=== PATIENT | male | born 1955 | race Caucasian/White ===

== ENCOUNTER → 2017-03-25 | Outpatient (CLI) | payer OTHER ==
[~2017-03-25] MED LIST: REGADENOSON 0.4 MG/5 ML SYRINGE ONE
== END ==
LOC: CVU 08:56 → EDSTATUS 10:00
PROVIDERS: ATTEND Internal Medicine Cardiovascular Disease
DX: Z01.818 Encounter for other preprocedural examination (principal); I08.3 Combined rheumatic disorders of mitral, aortic and tricuspid valves; I48.91 Unspecified atrial fibrillation; I10 Essential (primary) hypertension; E78.5 Hyperlipidemia, unspecified; E11.9 Type 2 diabetes mellitus without complications
CPT/HCPCS: 78452; 93017; 93306; A9502; J2785

== ENCOUNTER 2017-04-02 08:39 | Day surgery (SDC) | payer OTHER ==
[2017-03-31 11:18] LABS: BASOPHILS # (AUTO) 0.05 x10^3/uL (0-0.1); BASOPHILS % (AUTO) 1 % (0-1); EOSINOPHILS # (AUTO) 0.32 x10^3/uL (0-0.4); EOSINOPHILS % (AUTO) 5 % (1-7); LYMPHOCYTES # (AUTO) 1.76 x10^3/uL (1-3.4); LYMPHOCYTES % (AUTO) 25 % (22-44); MD NO; MEAN CORPUSCULAR HEMOGLOBIN 32.5 pg (27.5-34.5); MEAN CORPUSCULAR HGB CONC 32.9 g/dL (33.2-36.2); MEAN CORPUSCULAR VOLUME 98.8 fL (81-97); MEAN PLATELET VOLUME 9.9 fL (7.4-10.4); MONOCYTES % (AUTO) 9 % (2-9); NEUTROPHILS # (AUTO) 4.23 x10^3/uL (1.8-6.8); NEUTROPHILS % (AUTO) 61 % (42-75); PLATELET COUNT 166 x10^3/uL (130-400); RED BLOOD COUNT 4.59 x10^6/uL (4.38-5.82); RED CELL DISTRIBUTION WIDTH 17.5 % (9.4-14.8)
[2017-03-31 11:26] LABS: INTERNATIONAL NORMALIZED RATIO 1.02 (0.93-1.1); PROTHROMBIN TIME 10.6 Seconds (9.6-11.5)
[2017-03-31 11:34] LABS: CALCIUM 9.6 mg/dL (8.5-10.1); CHLORIDE 109 mmol/L (98-107)
[2017-03-31 11:37] LABS: ANION GAP 8 mmol/L (5-15); CREATININE 1.17 mg/dL (0.7-1.3)
[~2017-04-02] VITALS: Ht 185.4 cm; Wt 189.6 kg
[~2017-04-02 08:39] MED LIST changes: +ALLO300T PO; +ATEN25TA PO; +ATOR10TA9 PO; +METF500T4 PO; -REGADENOSON 0.4 MG/5 ML SYRINGE ONE; +VALS1TAB28 PO; +VERA300C2 PO
[2017-04-02] MEDS ORDERED: NITROGLYCERIN 5 MG/ML, 10ML ONE (10:22)
[2017-04-02] MEDS ORDERED: LIDOCAINE 2%, 20ML ONE (10:22)
[2017-04-02] MEDS ORDERED: FENTANYL PF 100 MCG/2ML ONE (10:22)
[2017-04-02] MEDS ORDERED: VERAPAMIL 2.5 MG/ML, 2ML ONE (10:22)
[2017-04-02] MEDS ORDERED: BIVALIRUDIN 250 MG ONE (10:22)
[2017-04-02] MEDS ORDERED: HEPARIN 1,000 UNITS/ML, 10ML ONE (10:22)
[2017-04-02] MEDS ORDERED: MIDAZOLAM 1 MG/ML, 2ML ONE (10:23)
== END 2017-04-02 14:00 | disposition home or self-care (01) ==
LOC: CACL 08:39
PROVIDERS: ATTEND Internal Medicine Cardiovascular Disease
DX: I25.10 Atherosclerotic heart disease of native coronary artery without angina pectoris (principal); I35.0 Nonrheumatic aortic (valve) stenosis; I48.2 Chronic atrial fibrillation; E11.9 Type 2 diabetes mellitus without complications; I10 Essential (primary) hypertension; E78.2 Mixed hyperlipidemia; Z98.84 Bariatric surgery status; Z95.4 Presence of other heart-valve replacement
CPT/HCPCS: 36415; 80048; 85025; 85610; 93454; 99156; C1894; J1644; J2250; J3010; J3490; Q9967; 99157; J0583

== ENCOUNTER 2017-05-07 04:55 | Inpatient (IN) | payer OTHER ==
[2017-05-06 14:22] LABS: MICROSCOPIC NOT IND
[2017-05-06 14:25] LABS: BASOPHILS # (AUTO) 0.02 x10^3/uL (0-0.1); BASOPHILS % (AUTO) 0 % (0-1); EOSINOPHILS # (AUTO) 0.21 x10^3/uL (0-0.4); EOSINOPHILS % (AUTO) 3 % (1-7); LYMPHOCYTES % (AUTO) 27 % (22-44); MD NO; MEAN CORPUSCULAR HEMOGLOBIN 32.5 pg (27.5-34.5); MEAN CORPUSCULAR VOLUME 98.5 fL (81-97); MEAN PLATELET VOLUME 10.2 fL (7.4-10.4); MONOCYTES # (AUTO) 0.48 x10^3/uL (0.2-0.8); MONOCYTES % (AUTO) 7 % (2-9); NEUTROPHILS # (AUTO) 4.22 x10^3/uL (1.8-6.8); NEUTROPHILS % (AUTO) 63 % (42-75); PLATELET COUNT 174 x10^3/uL (130-400); RED BLOOD COUNT 4.59 x10^6/uL (4.38-5.82); RED CELL DISTRIBUTION WIDTH 16.2 % (9.4-14.8)
[2017-05-06 14:26] LABS: INTERNATIONAL NORMALIZED RATIO 1.02 (0.93-1.1); PROTHROMBIN TIME 10.5 Seconds (9.6-11.5)
[2017-05-06 14:27] LABS: ALBUMIN 3.6 g/dL (3.4-5.0); ANION GAP 8 mmol/L (5-15); CALCIUM 8.9 mg/dL (8.5-10.1); CHLORIDE 110 mmol/L (98-107)
[2017-05-06 14:30] LABS: CREATININE 0.98 mg/dL (0.7-1.3)
[2017-05-06 14:31] LABS: ALANINE AMINOTRANSFERASE 32 U/L (12-78); ALKALINE PHOSPHATASE 72 U/L (45-117); BILIRUBIN,TOTAL 0.8 mg/dL (0.2-1.0)
[2017-05-06 14:40] LABS: HEMOGLOBIN A1C 5.1 % (4.2-6.3)
[~2017-05-07] VITALS: Ht 185.4 cm; Wt 107.3 kg
[2017-05-07 04:27] VITALS: BP_SYST 177; BP_SYST 179; BP_DIAS 112; BP_DIAS 97
[2017-05-07] MEDS ORDERED: CHLORHEXIDINE 15 ML BOTTLE MM PRN (05:30)
[2017-05-07] MEDS ORDERED: INSULIN LISPRO 100 UNITS/ML, PEN SQ-INSULIN SCH (05:30)
[2017-05-07 06:04] VITALS: BP_SYST 133; BP_SYST 156; BP_DIAS 88; BP_DIAS 93
[2017-05-07] MEDS ORDERED: FENTANYL PF 250 MCG/5ML ONE ×4 (06:43→06:44)
[2017-05-07] MEDS ORDERED: MIDAZOLAM 10MG/2 ML ONE (06:43)
[2017-05-07] MEDS ORDERED: ROCURONIUM 10 MG/ML,10ML ONE (07:17)
[2017-05-07] MEDS ORDERED: EPINEPHRINE 1 MG/ML, 1ML ONE (07:17)
[2017-05-07] MEDS ORDERED: PROPOFOL 10 MG/ML, 20ML ONE (07:17)
[2017-05-07] MEDS ORDERED: PHENYLEPHRINE 10 MG in SODIUM CHLORIDE 0.9% 249 ML IV PRN ×2 (07:30→07:39)
[2017-05-07] MEDS ORDERED: REGULAR INSULIN 62.5 UNITS in SODIUM CHLORIDE 0.9% 249.375 ML IV PRN ×2 (07:30→07:39)
[2017-05-07] MEDS ORDERED: POTASSIUM CHLORIDE 80 MEQ, SODIUM BICARBONATE 8.4% 10 MEQ, MAGNESIUM SULFATE 0.5 GM, LI... IV PRN (07:30)
[2017-05-07] MEDS ORDERED: VANCOMYCIN 2,800 MG in SODIUM CHLORIDE 0.9% 500 ML IV PRN (07:30)
[2017-05-07] MEDS ORDERED: DEXMEDETOMIDINE 200 MCG in SODIUM CHLORIDE 0.9% 48 ML IV SCH (07:30)
[2017-05-07] MEDS ORDERED: CEFUROXIME 1.5 GM in SODIUM CHLORIDE 0.9% 50 ML IVPB PRN (07:30)
[2017-05-07] MEDS ORDERED: MANNITOL PMX 20% 500 ML IVPB PRN (07:30)
[2017-05-07] MEDS ORDERED: EPINEPHRINE 2 MG in SODIUM CHLORIDE 0.9% 248 ML IV SCH (07:30)
[2017-05-07] MEDS ORDERED: ALBUMIN HUMAN 5% 500 ML IV PRN (07:30)
[2017-05-07] MEDS ORDERED: DOBUTAMINE 250 MG in SODIUM CHLORIDE 0.9% 230 ML IV PRN (07:39)
[2017-05-07] MEDS ORDERED: DEXMEDETOMIDINE 200 MCG in SODIUM CHLORIDE 0.9% 48 ML IV PRN (07:39)
[2017-05-07] MEDS ORDERED: SODIUM CHLORIDE 0.9% 1,000 ML IV PRN (07:39)
[2017-05-07] MEDS ORDERED: VASOPRESSIN 50 UNIT in SODIUM CHLORIDE 0.9% 247.5 ML IV PRN (07:39)
[2017-05-07] MEDS ORDERED: NITROGLYCERIN/D5W PMX 250 ML IV PRN (07:39)
[2017-05-07] MEDS ORDERED: DEXTROSE 50%, 50ML SYRINGE IVPush PRN (08:00)
[2017-05-07] MEDS ORDERED: ACETAMINOPHEN 650 MG SUPP PR PRN (08:00)
[2017-05-07] MEDS ORDERED: ACETAMINOPHEN 325 MG TABLET PO PRN (08:00)
[2017-05-07] MEDS ORDERED: BISACODYL 10 MG SUPP PR PRN (08:00)
[2017-05-07] MEDS ORDERED: SODIUM BICARB 8.4%, 50ML SYRINGE IV PRN (08:00)
[2017-05-07] MEDS ORDERED: DEXTROSE 4 GM TAB.CHEW PO PRN (08:00)
[2017-05-07] MEDS ORDERED: PROCHLORPERAZINE 5 MG/ML, 2ML IVPush PRN (08:00)
[2017-05-07] MEDS ORDERED: ONDANSETRON 2MG/ML, 2ML IVPush PRN (08:00)
[2017-05-07] MEDS ORDERED: LACTATED RINGERS 1,000 ML IV PRN (08:00)
[2017-05-07] MEDS ORDERED: EPINEPHRINE 2 MG in SODIUM CHLORIDE 0.9% 248 ML IV PRN (08:00)
[2017-05-07] MEDS ORDERED: MIDAZOLAM 1 MG/ML, 5ML IVPush PRN (08:00)
[2017-05-07] MEDS ORDERED: GLUCAGON 1 MG IM PRN (08:00)
[2017-05-07] MEDS ORDERED: INSULIN REGULAR 100 UNITS/ML, 3ML VIAL IVPush PRN (08:00)
[2017-05-07] MEDS ORDERED: MAGNESIUM SULFATE PMX 2GM/50ML 50 ML ONE (08:41)
[2017-05-07] MEDS ORDERED: MUPIROCIN OINT 2%, 22GM TP SCH (09:00)
[2017-05-07] MEDS ORDERED: SODIUM CHLORIDE FLUSH 10ML SYR IVF SCH (09:00)
[2017-05-07] MEDS ORDERED: HEPARIN 1,000 UNITS/ML, 30ML ONE (11:01)
[2017-05-07] MEDS ORDERED: TRANEXAMIC ACID 100 MG/ML, 10ML ONE (11:01)
[2017-05-07] MEDS ORDERED: methylPREDNISolone SOD SUCC 125 MG/2 ML ONE (11:01)
[2017-05-07] MEDS ORDERED: LIDOCAINE 2% 100MG/5ML SYRINGE ONE (11:01)
[2017-05-07] MEDS ORDERED: ALBUMIN HUMAN 25% 50 ML ONE (11:02)
[2017-05-07 11:57] LABS: GLUCOSE BY BLOOD GAS ANALYZER 136 mg/dL (70-110); HEMOGLOBIN BY BLOOD GAS ANALYZ 12.5 g/dL (14.0-18.0); POTASSIUM BY BLOOD GAS ANALYZR 3.4 mmol/L (3.6-5.5)
[2017-05-07 12:06] LABS: INTERNATIONAL NORMALIZED RATIO 1.24 (0.93-1.1); PROTHROMBIN TIME 12.7 Seconds (9.6-11.5)
[2017-05-07] MEDS: KSCALE TO 4.5 IV SCH ×2 (12:12→18:00)
[2017-05-07] MEDS: INSULIN LISPRO 100 UNITS/ML, PEN SQ-INSULIN SCH ×3 (12:13→20:45)
[2017-05-07] MEDS: DOCUSATE 100 MG CAPSULE PO SCH ×2 (12:13→20:47)
[2017-05-07] MEDS ORDERED: POTASSIUM CHLORIDE 30 MEQ in SODIUM CHLORIDE 0.9% 100 ML IV ONE (12:30)
[2017-05-07] MEDS: SODIUM CHLORIDE FLUSH 10ML SYR IVF SCH ×2 (13:23→20:47)
[2017-05-07] MEDS: morphine SULFATE 10 MG/ML, 1ML IVPush PRN (14:16)
[2017-05-07] MEDS: MAGNESIUM SULFATE 1 GM in SODIUM CHLORIDE 0.9% 50 ML IVPB SCH (15:17)
[2017-05-07] MEDS: OXYcodone IR 5MG TABLET PO PRN ×3 (18:12→21:08)
[2017-05-07] MEDS: CEFUROXIME 1.5 GM in SODIUM CHLORIDE 0.9% 50 ML IVPB SCH (18:41)
[2017-05-07] MEDS ORDERED: SODIUM CHLORIDE 0.9% IVPB SCH (19:30)
[2017-05-07] MEDS ORDERED: VANCOMYCIN IVPB SCH (19:30)
[2017-05-07] MEDS: VANCOMYCIN IVPB SCH (20:47)
[2017-05-07] MEDS: SODIUM CHLORIDE 0.9% IVPB SCH (20:47)
[2017-05-07] MEDS: HYDROcodone/APAP 10/325 MG TABLET PO PRN (23:31)
[2017-05-08] MEDS: OXYcodone IR 5MG TABLET PO PRN ×2 (02:01→20:12)
[2017-05-08 04:48] LABS: ALBUMIN 2.9 g/dL (3.4-5.0); ANION GAP 6 mmol/L (5-15); CHLORIDE 114 mmol/L (98-107); CREATININE 0.88 mg/dL (0.7-1.3)
[2017-05-08 04:51] LABS: BASOPHILS % (AUTO) 0 % (0-1); EOSINOPHILS # (AUTO) 0.01 x10^3/uL (0-0.4); EOSINOPHILS % (AUTO) 0 % (1-7); LYMPHOCYTES # (AUTO) 0.73 x10^3/uL (1-3.4); LYMPHOCYTES % (AUTO) 6 % (22-44); MD NO; MEAN CORPUSCULAR HEMOGLOBIN 32.9 pg (27.5-34.5); MEAN CORPUSCULAR HGB CONC 33.2 g/dL (33.2-36.2); MEAN CORPUSCULAR VOLUME 98.8 fL (81-97); MEAN PLATELET VOLUME 10.5 fL (7.4-10.4); MONOCYTES % (AUTO) 6 % (2-9); NEUTROPHILS # (AUTO) 10.36 x10^3/uL (1.8-6.8); NEUTROPHILS % (AUTO) 88 % (42-75); PLATELET COUNT 112 x10^3/uL (130-400); RED BLOOD COUNT 3.44 x10^6/uL (4.38-5.82)
[2017-05-08 04:52] LABS: INTERNATIONAL NORMALIZED RATIO 1.04 (0.93-1.1); PROTHROMBIN TIME 10.7 Seconds (9.6-11.5)
[2017-05-08] MEDS: HYDROcodone/APAP 10/325 MG TABLET PO PRN ×3 (04:57→16:47)
[2017-05-08] MEDS: KSCALE TO 4.5 IV SCH ×2 (06:00)
[2017-05-08] MEDS: INSULIN LISPRO 100 UNITS/ML, PEN SQ-INSULIN SCH ×4 (07:00→20:16)
[2017-05-08] MEDS ORDERED: VANCOMYCIN IVPB PRN (07:30)
[2017-05-08] MEDS ORDERED: CEFUROXIME 1.5 GM in SODIUM CHLORIDE 0.9% 50 ML IVPB PRN (07:30)
[2017-05-08] MEDS ORDERED: SODIUM CHLORIDE 0.9% IVPB PRN (07:30)
[2017-05-08] MEDS: VANCOMYCIN IVPB SCH (08:17)
[2017-05-08] MEDS: CEFUROXIME 1.5 GM in SODIUM CHLORIDE 0.9% 50 ML IVPB SCH (08:17)
[2017-05-08] MEDS: SODIUM CHLORIDE 0.9% IVPB SCH (08:17)
[2017-05-08] MEDS: SODIUM CHLORIDE FLUSH 10ML SYR IVF SCH ×2 (08:17→20:12)
[2017-05-08] MEDS: CHLORHEXIDINE 15 ML BOTTLE MM SCH ×2 (08:18→20:13)
[2017-05-08] MEDS: WARFARIN BIOPROSTHETIC VALVE PROTOCOL 2-3 XX SCH (09:00)
[2017-05-08] MEDS: MAGNESIUM SULFATE 1 GM in SODIUM CHLORIDE 0.9% 50 ML IVPB SCH (11:16)
[2017-05-08] MEDS: DOCUSATE 100 MG CAPSULE PO SCH ×2 (11:19→20:19)
[2017-05-08] MEDS: ASPIRIN 81 MG TABLET EC PO SCH (11:19)
[2017-05-08] MEDS ORDERED: AMIODARONE 150 MG in DEXTROSE 5% 100 ML IV ONE (13:00)
[2017-05-08] MEDS ORDERED: FUROSEMIDE 20 MG/2 ML IV ONE (13:30)
[2017-05-08] MEDS ORDERED: WARFARIN 7.5 MG TABLET PO-COUM ONE (18:00)
[2017-05-09] MEDS: morphine SULFATE 10 MG/ML, 1ML IVPush PRN (03:13)
[2017-05-09 04:42] LABS: MEAN CORPUSCULAR HEMOGLOBIN 33.2 pg (27.5-34.5); MEAN CORPUSCULAR HGB CONC 33.3 g/dL (33.2-36.2); MEAN CORPUSCULAR VOLUME 99.7 fL (81-97); MEAN PLATELET VOLUME 9.9 fL (7.4-10.4); PLATELET COUNT 94 x10^3/uL (130-400); RED BLOOD COUNT 3.39 x10^6/uL (4.38-5.82); RED CELL DISTRIBUTION WIDTH 15.9 % (9.4-14.8)
[2017-05-09 04:48] LABS: INTERNATIONAL NORMALIZED RATIO 1.13 (0.93-1.1); PROTHROMBIN TIME 11.6 Seconds (9.6-11.5)
[2017-05-09 04:50] LABS: ANION GAP 7 mmol/L (5-15); CALCIUM 7.9 mg/dL (8.5-10.1); CHLORIDE 109 mmol/L (98-107); CREATININE 0.87 mg/dL (0.7-1.3)
[2017-05-09 05:09] LABS: BASOPHILS # (AUTO) 0.03 x10^3/uL (0-0.1); BASOPHILS % (AUTO) 0 % (0-1); EOSINOPHILS # (AUTO) 0.05 x10^3/uL (0-0.4); EOSINOPHILS % (AUTO) 1 % (1-7); LYMPHOCYTES # (AUTO) 1.07 x10^3/uL (1-3.4); LYMPHOCYTES % (AUTO) 10 % (22-44); MD SCAN; MONOCYTES # (AUTO) 0.86 x10^3/uL (0.2-0.8); MONOCYTES % (AUTO) 8 % (2-9); NEUTROPHILS # (AUTO) 8.48 x10^3/uL (1.8-6.8); NEUTROPHILS % (AUTO) 81 % (42-75)
[2017-05-09] MEDS: HYDROcodone/APAP 10/325 MG TABLET PO PRN ×4 (05:31→23:37)
[2017-05-09] MEDS ORDERED: AMIODARONE 150 MG in DEXTROSE 5% 100 ML IV ONE (07:00)
[2017-05-09] MEDS: INSULIN LISPRO 100 UNITS/ML, PEN SQ-INSULIN SCH ×4 (07:00→21:16)
[2017-05-09] MEDS: TAMSULOSIN 0.4 MG CAP.ER.24H PO SCH (08:06)
[2017-05-09] MEDS: CHLORHEXIDINE 15 ML BOTTLE MM SCH ×2 (08:06→21:15)
[2017-05-09] MEDS: ASPIRIN 81 MG TABLET EC PO SCH (08:06)
[2017-05-09] MEDS: DOCUSATE 100 MG CAPSULE PO SCH ×2 (08:06→21:18)
[2017-05-09] MEDS: SODIUM CHLORIDE FLUSH 10ML SYR IVF SCH ×2 (08:08→21:15)
[2017-05-09] MEDS: WARFARIN BIOPROSTHETIC VALVE PROTOCOL 2-3 XX SCH (09:00)
[2017-05-09] MEDS ORDERED: FUROSEMIDE 40 MG/4 ML IV ONE (09:30)
[2017-05-09] MEDS: MAGNESIUM SULFATE 1 GM in SODIUM CHLORIDE 0.9% 50 ML IVPB SCH (10:47)
[2017-05-09] MEDS: FILTER 0.22 MICRON FOR AMIODARONE IV PRN (10:55)
[2017-05-09] MEDS: AMIODARONE 900 MG in DEXTROSE 5% 482 ML IV PRN (10:56)
[2017-05-09] MEDS ORDERED: WARFARIN 7.5 MG TABLET PO-COUM ONE (18:00)
[2017-05-10] MEDS: HYDROcodone/APAP 10/325 MG TABLET PO PRN ×5 (00:40→20:11)
[2017-05-10] MEDS: AMIODARONE 900 MG in DEXTROSE 5% 482 ML IV PRN (04:50)
[2017-05-10] MEDS: FILTER 0.22 MICRON FOR AMIODARONE IV PRN (04:51)
[2017-05-10 05:14] LABS: INTERNATIONAL NORMALIZED RATIO 1.81 (0.93-1.1); PROTHROMBIN TIME 18.4 Seconds (9.6-11.5)
[2017-05-10 05:20] LABS: CHLORIDE 106 mmol/L (98-107)
[2017-05-10 05:22] LABS: CREATININE 0.67 mg/dL (0.7-1.3)
[2017-05-10 05:27] LABS: ANION GAP 5 mmol/L (5-15)
[2017-05-10] MEDS: INSULIN LISPRO 100 UNITS/ML, PEN SQ-INSULIN SCH ×4 (07:00→20:11)
[2017-05-10] MEDS: ASPIRIN 81 MG TABLET EC PO SCH (08:00)
[2017-05-10] MEDS: DOCUSATE 100 MG CAPSULE PO SCH ×2 (08:00→20:10)
[2017-05-10] MEDS: SODIUM CHLORIDE FLUSH 10ML SYR IVF SCH ×2 (08:00→20:10)
[2017-05-10] MEDS: WARFARIN BIOPROSTHETIC VALVE PROTOCOL 2-3 XX SCH (08:01)
[2017-05-10] MEDS: TAMSULOSIN 0.4 MG CAP.ER.24H PO SCH (08:01)
[2017-05-10] MEDS ORDERED: FUROSEMIDE 40 MG/4 ML IV ONE (09:33)
[2017-05-10] MEDS: FUROSEMIDE 40 MG/4 ML IV SCH (09:41)
[2017-05-10] MEDS: AMIODARONE 200 MG TABLET PO SCH ×2 (09:47→20:10)
[2017-05-10] MEDS ORDERED: PNEUMOCOCCAL 23 VACCINE IM-VACC ONE (10:30)
[2017-05-10] MEDS ORDERED: FLU VACC QS2017-18 (36MOS+) UP/PF 0.5 ML IM-VACC ONE (10:30)
[2017-05-10] MEDS: POTASSIUM CHLORIDE 20 MEQ PACKET PO SCH (16:24)
[2017-05-10] MEDS ORDERED: WARFARIN 5 MG TABLET PO-COUM ONE (18:00)
[2017-05-10 20:28] VITALS: BP 99/56
[2017-05-11] MEDS: HYDROcodone/APAP 10/325 MG TABLET PO PRN ×5 (02:59→21:38)
[2017-05-11 03:04] VITALS: BP 127/91
[2017-05-11] MEDS: AMIODARONE 900 MG in DEXTROSE 5% 482 ML IV PRN (03:08)
[2017-05-11] MEDS: FILTER 0.22 MICRON FOR AMIODARONE IV PRN (03:10)
[2017-05-11 03:46] LABS: INTERNATIONAL NORMALIZED RATIO 3.41 (0.93-1.1); PROTHROMBIN TIME 34.3 Seconds (9.6-11.5)
[2017-05-11 03:49] LABS: ANION GAP 7 mmol/L (5-15); CALCIUM 7.7 mg/dL (8.5-10.1); CHLORIDE 104 mmol/L (98-107); CREATININE 0.64 mg/dL (0.7-1.3)
[2017-05-11 06:40] VITALS: BP 124/81
[2017-05-11] MEDS: INSULIN LISPRO 100 UNITS/ML, PEN SQ-INSULIN SCH ×4 (07:00→21:38)
[2017-05-11] MEDS ORDERED: HOLD COUMADIN MC PRN (08:00)
[2017-05-11] MEDS: DOCUSATE 100 MG CAPSULE PO SCH ×2 (08:06→21:37)
[2017-05-11] MEDS: ASPIRIN 81 MG TABLET EC PO SCH (08:06)
[2017-05-11] MEDS: POTASSIUM CHLORIDE 20 MEQ PACKET PO SCH ×2 (08:06→17:00)
[2017-05-11] MEDS: TAMSULOSIN 0.4 MG CAP.ER.24H PO SCH (08:06)
[2017-05-11] MEDS: BISACODYL 5 MG EC TABLET PO PRN (08:06)
[2017-05-11] MEDS: WARFARIN BIOPROSTHETIC VALVE PROTOCOL 2-3 XX SCH (08:07)
[2017-05-11] MEDS: FUROSEMIDE 40 MG/4 ML IV SCH (08:07)
[2017-05-11] MEDS: SODIUM CHLORIDE FLUSH 10ML SYR IVF SCH ×2 (08:07→21:37)
[2017-05-11] MEDS: AMIODARONE 200 MG TABLET PO SCH ×2 (08:07→21:37)
[2017-05-11 12:34] VITALS: BP 137/86
[2017-05-11 20:00] VITALS: BP 127/80
[2017-05-12 02:30] VITALS: BP 134/77
[2017-05-12] MEDS: HYDROcodone/APAP 10/325 MG TABLET PO PRN ×4 (04:33→20:42)
[2017-05-12 05:42] LABS: INTERNATIONAL NORMALIZED RATIO 4.14 (0.93-1.1); PROTHROMBIN TIME 41.5 Seconds (9.6-11.5)
[2017-05-12 05:51] LABS: ANION GAP 5 mmol/L (5-15); CALCIUM 8.2 mg/dL (8.5-10.1); CHLORIDE 101 mmol/L (98-107)
[2017-05-12 05:52] LABS: CREATININE 0.69 mg/dL (0.7-1.3)
[2017-05-12] MEDS: INSULIN LISPRO 100 UNITS/ML, PEN SQ-INSULIN SCH ×4 (07:00→21:00)
[2017-05-12 07:46] VITALS: BP 125/71
[2017-05-12] MEDS ORDERED: HOLD COUMADIN MC PRN (08:00)
[2017-05-12] MEDS: DOCUSATE 100 MG CAPSULE PO SCH ×2 (08:28→20:41)
[2017-05-12] MEDS: ASPIRIN 81 MG TABLET EC PO SCH (08:28)
[2017-05-12] MEDS: POTASSIUM CHLORIDE 20 MEQ PACKET PO SCH ×2 (08:28→16:55)
[2017-05-12] MEDS: TAMSULOSIN 0.4 MG CAP.ER.24H PO SCH (08:28)
[2017-05-12] MEDS: FUROSEMIDE 40 MG/4 ML IV SCH (08:28)
[2017-05-12] MEDS: BISACODYL 5 MG EC TABLET PO PRN (08:28)
[2017-05-12] MEDS: AMIODARONE 200 MG TABLET PO SCH ×2 (08:28→20:41)
[2017-05-12] MEDS: SODIUM CHLORIDE FLUSH 10ML SYR IVF SCH ×2 (08:29→20:41)
[2017-05-12] MEDS: WARFARIN BIOPROSTHETIC VALVE PROTOCOL 2-3 XX SCH (08:29)
[2017-05-12 14:15] VITALS: BP 131/91
[2017-05-12 19:06] VITALS: BP 117/72
[2017-05-13 01:13] VITALS: BP 136/75
[2017-05-13] MEDS: HYDROcodone/APAP 10/325 MG TABLET PO PRN ×5 (05:03→23:10)
[2017-05-13] MEDS: BISACODYL 5 MG EC TABLET PO PRN (05:12)
[2017-05-13 05:16] LABS: INTERNATIONAL NORMALIZED RATIO 3.07 (0.93-1.1); PROTHROMBIN TIME 30.9 Seconds (9.6-11.5)
[2017-05-13 05:24] LABS: ANION GAP 3 mmol/L (5-15); CALCIUM 7.8 mg/dL (8.5-10.1); CHLORIDE 102 mmol/L (98-107); CREATININE 0.65 mg/dL (0.7-1.3)
[2017-05-13] MEDS: INSULIN LISPRO 100 UNITS/ML, PEN SQ-INSULIN SCH ×4 (07:00→21:00)
[2017-05-13 07:14] VITALS: BP 127/76
[2017-05-13] MEDS: WARFARIN BIOPROSTHETIC VALVE PROTOCOL 2-3 XX SCH (09:00)
[2017-05-13] MEDS ORDERED: MAGNESIUM HYDROXIDE 8%, 30ML UDC PO PRN (09:30)
[2017-05-13] MEDS: FUROSEMIDE 40 MG/4 ML IV SCH (09:33)
[2017-05-13] MEDS: SODIUM CHLORIDE FLUSH 10ML SYR IVF SCH ×2 (09:34→22:35)
[2017-05-13] MEDS: AMIODARONE 200 MG TABLET PO SCH ×2 (09:36→22:35)
[2017-05-13] MEDS: ASPIRIN 81 MG TABLET EC PO SCH (09:36)
[2017-05-13] MEDS: TAMSULOSIN 0.4 MG CAP.ER.24H PO SCH (09:36)
[2017-05-13] MEDS: DOCUSATE 100 MG CAPSULE PO SCH ×2 (09:36→22:35)
[2017-05-13] MEDS: POTASSIUM CHLORIDE 20 MEQ PACKET PO SCH ×2 (09:37→22:35)
[2017-05-13 17:30] VITALS: BP 143/78
[2017-05-13] MEDS ORDERED: WARFARIN 1 MG TABLET PO-COUM ONE (18:00)
[2017-05-13 20:48] VITALS: BP 121/66
[2017-05-14 03:57] VITALS: BP 113/72
[2017-05-14] MEDS: HYDROcodone/APAP 10/325 MG TABLET PO PRN ×5 (04:02→21:53)
[2017-05-14 05:19] LABS: INTERNATIONAL NORMALIZED RATIO 2.31 (0.93-1.1); PROTHROMBIN TIME 23.4 Seconds (9.6-11.5)
[2017-05-14 05:25] LABS: ANION GAP 4 mmol/L (5-15); CALCIUM 7.9 mg/dL (8.5-10.1); CHLORIDE 101 mmol/L (98-107)
[2017-05-14 06:43] LABS: CREATININE 0.77 mg/dL (0.7-1.3)
[2017-05-14] MEDS: INSULIN LISPRO 100 UNITS/ML, PEN SQ-INSULIN SCH ×4 (07:00→21:00)
[2017-05-14] MEDS ORDERED: HYDR-3240 PO (07:48)
[2017-05-14] MEDS ORDERED: WARF2.5T PO-COUM (07:48)
[2017-05-14] MEDS ORDERED: ASPI-621 PO (07:48)
[2017-05-14] MEDS ORDERED: POTA20TA14 PO (07:48)
[2017-05-14] MEDS ORDERED: AMIO200T42 PO (07:48)
[2017-05-14] MEDS ORDERED: TAMS-11 PO (07:48)
[2017-05-14] MEDS ORDERED: FURO40TA6 PO (07:48)
[2017-05-14] MEDS ORDERED: DOCU-131 PO (07:48)
[2017-05-14 07:55] VITALS: BP 127/82
[2017-05-14] MEDS: POTASSIUM CHLORIDE 20 MEQ PACKET PO SCH ×2 (08:54→21:53)
[2017-05-14] MEDS: DOCUSATE 100 MG CAPSULE PO SCH ×2 (08:57→21:53)
[2017-05-14] MEDS: AMIODARONE 200 MG TABLET PO SCH ×2 (08:57→21:53)
[2017-05-14] MEDS: ASPIRIN 81 MG TABLET EC PO SCH (08:58)
[2017-05-14] MEDS: TAMSULOSIN 0.4 MG CAP.ER.24H PO SCH (08:58)
[2017-05-14] MEDS: FUROSEMIDE 40 MG/4 ML IV SCH (08:59)
[2017-05-14] MEDS: SODIUM CHLORIDE FLUSH 10ML SYR IVF SCH ×2 (08:59→21:56)
[2017-05-14] MEDS: WARFARIN BIOPROSTHETIC VALVE PROTOCOL 2-3 XX SCH (09:00)
[2017-05-14] MEDS: WARFARIN MODERAT DOSE PROTOCOL XX SCH (11:54)
[2017-05-14 13:15] VITALS: BP 135/82
[2017-05-14] MEDS ORDERED: WARFARIN 2.5 MG TABLET PO-COUM SCH (18:00)
[2017-05-14 20:48] VITALS: BP 122/75
[2017-05-15 01:45] VITALS: BP 123/70
[2017-05-15] MEDS: HYDROcodone/APAP 10/325 MG TABLET PO PRN ×4 (04:24→20:14)
[2017-05-15 04:58] LABS: INTERNATIONAL NORMALIZED RATIO 2.18 (0.93-1.1); PROTHROMBIN TIME 22.1 Seconds (9.6-11.5)
[2017-05-15 05:01] LABS: ANION GAP 6 mmol/L (5-15); CALCIUM 8.1 mg/dL (8.5-10.1); CHLORIDE 100 mmol/L (98-107); CREATININE 0.74 mg/dL (0.7-1.3)
[2017-05-15] MEDS: INSULIN LISPRO 100 UNITS/ML, PEN SQ-INSULIN SCH ×4 (07:00→20:17)
[2017-05-15 08:37] VITALS: BP 147/86
[2017-05-15] MEDS: POTASSIUM CHLORIDE 20 MEQ PACKET PO SCH ×2 (08:38→17:03)
[2017-05-15] MEDS: FUROSEMIDE 40 MG/4 ML IV SCH (08:39)
[2017-05-15] MEDS: SODIUM CHLORIDE FLUSH 10ML SYR IVF SCH ×2 (08:39→20:14)
[2017-05-15] MEDS: DOCUSATE 100 MG CAPSULE PO SCH ×2 (08:39→20:14)
[2017-05-15] MEDS: TAMSULOSIN 0.4 MG CAP.ER.24H PO SCH (08:39)
[2017-05-15] MEDS: ASPIRIN 81 MG TABLET EC PO SCH (08:39)
[2017-05-15] MEDS: AMIODARONE 200 MG TABLET PO SCH ×2 (08:39→20:14)
[2017-05-15] MEDS: WARFARIN BIOPROSTHETIC VALVE PROTOCOL 2-3 XX SCH (08:46)
[2017-05-15] MEDS: WARFARIN MODERAT DOSE PROTOCOL XX SCH (12:00)
[2017-05-15 14:26] VITALS: BP 144/97
[2017-05-15] MEDS ORDERED: WARFARIN 3 MG TABLET PO-COUM SCH (18:00)
[2017-05-15 18:34] VITALS: BP 128/83
[2017-05-16] MEDS: HYDROcodone/APAP 10/325 MG TABLET PO PRN ×4 (00:12→19:50)
[2017-05-16 00:28] VITALS: BP 120/78
[2017-05-16 05:34] LABS: INTERNATIONAL NORMALIZED RATIO 2.02 (0.93-1.1); PROTHROMBIN TIME 20.5 Seconds (9.6-11.5)
[2017-05-16 05:39] LABS: ANION GAP 6 mmol/L (5-15); CALCIUM 8.4 mg/dL (8.5-10.1); CHLORIDE 102 mmol/L (98-107)
[2017-05-16 05:42] LABS: CREATININE 0.75 mg/dL (0.7-1.3)
[2017-05-16 05:45] LABS: BASOPHILS # (AUTO) 0.02 x10^3/uL (0-0.1); BASOPHILS % (AUTO) 0 % (0-1); EOSINOPHILS % (AUTO) 6 % (1-7); LYMPHOCYTES # (AUTO) 0.95 x10^3/uL (1-3.4); LYMPHOCYTES % (AUTO) 19 % (22-44); MD NO; MEAN CORPUSCULAR HEMOGLOBIN 32.1 pg (27.5-34.5); MEAN CORPUSCULAR HGB CONC 32.6 g/dL (33.2-36.2); MEAN CORPUSCULAR VOLUME 98.3 fL (81-97); MEAN PLATELET VOLUME 8.8 fL (7.4-10.4); MONOCYTES # (AUTO) 0.46 x10^3/uL (0.2-0.8); MONOCYTES % (AUTO) 9 % (2-9); NEUTROPHILS # (AUTO) 3.31 x10^3/uL (1.8-6.8); NEUTROPHILS % (AUTO) 66 % (42-75); PLATELET COUNT 163 x10^3/uL (130-400); RED BLOOD COUNT 3.59 x10^6/uL (4.38-5.82); RED CELL DISTRIBUTION WIDTH 16.1 % (9.4-14.8)
[2017-05-16] MEDS: INSULIN LISPRO 100 UNITS/ML, PEN SQ-INSULIN SCH ×4 (07:00→20:09)
[2017-05-16 07:52] VITALS: BP 133/86
[2017-05-16] MEDS: WARFARIN BIOPROSTHETIC VALVE PROTOCOL 2-3 XX SCH (09:00)
[2017-05-16] MEDS: WARFARIN MODERAT DOSE PROTOCOL XX SCH (09:13)
[2017-05-16] MEDS: DOCUSATE 100 MG CAPSULE PO SCH ×2 (09:15→19:49)
[2017-05-16] MEDS: FUROSEMIDE 40 MG/4 ML IV SCH (09:15)
[2017-05-16] MEDS: TAMSULOSIN 0.4 MG CAP.ER.24H PO SCH (09:15)
[2017-05-16] MEDS: ASPIRIN 81 MG TABLET EC PO SCH (09:15)
[2017-05-16] MEDS: AMIODARONE 200 MG TABLET PO SCH ×2 (09:15→19:52)
[2017-05-16] MEDS: POTASSIUM CHLORIDE 20 MEQ PACKET PO SCH ×2 (09:15→16:25)
[2017-05-16] MEDS: SODIUM CHLORIDE FLUSH 10ML SYR IVF SCH ×2 (09:16→21:00)
[2017-05-16 14:30] VITALS: BP 139/87
[2017-05-16] MEDS ORDERED: WARFARIN 3 MG TABLET PO-COUM SCH (18:00)
[2017-05-16 19:53] VITALS: BP 132/83
[2017-05-17] MEDS: HYDROcodone/APAP 10/325 MG TABLET PO PRN ×3 (00:04→08:26)
[2017-05-17 04:26] VITALS: BP 129/80
[2017-05-17 05:13] LABS: INTERNATIONAL NORMALIZED RATIO 2.34 (0.93-1.1); PROTHROMBIN TIME 23.7 Seconds (9.6-11.5)
[2017-05-17 05:21] LABS: CHLORIDE 102 mmol/L (98-107)
[2017-05-17 05:30] LABS: ANION GAP 9 mmol/L (5-15); CALCIUM 8.4 mg/dL (8.5-10.1); CREATININE 0.84 mg/dL (0.7-1.3)
[2017-05-17] MEDS: INSULIN LISPRO 100 UNITS/ML, PEN SQ-INSULIN SCH ×4 (07:00→21:00)
[2017-05-17] MEDS: WARFARIN MODERAT DOSE PROTOCOL XX SCH (07:12)
[2017-05-17 08:15] VITALS: BP 128/78
[2017-05-17] MEDS: DOCUSATE 100 MG CAPSULE PO SCH ×2 (08:25→20:40)
[2017-05-17] MEDS: TAMSULOSIN 0.4 MG CAP.ER.24H PO SCH (08:25)
[2017-05-17] MEDS: ASPIRIN 81 MG TABLET EC PO SCH (08:25)
[2017-05-17] MEDS: POTASSIUM CHLORIDE 20 MEQ PACKET PO SCH ×2 (08:26→18:13)
[2017-05-17] MEDS: FUROSEMIDE 40 MG/4 ML IV SCH (08:28)
[2017-05-17] MEDS: AMIODARONE 200 MG TABLET PO SCH ×2 (08:28→20:40)
[2017-05-17] MEDS: SODIUM CHLORIDE FLUSH 10ML SYR IVF SCH ×2 (08:29→21:00)
[2017-05-17] MEDS: WARFARIN BIOPROSTHETIC VALVE PROTOCOL 2-3 XX SCH (08:35)
[2017-05-17 14:30] VITALS: BP 130/82
[2017-05-17] MEDS ORDERED: WARFARIN 2.5 MG TABLET PO-COUM SCH (18:00)
[2017-05-17] MEDS: HYDROcodone/APAP 5/325 TABLET PO PRN ×2 (18:14→20:40)
[2017-05-17 20:01] VITALS: BP 131/81
[2017-05-18 01:41] VITALS: BP 130/84
[2017-05-18] MEDS: HYDROcodone/APAP 10/325 MG TABLET PO PRN ×4 (04:40→21:39)
[2017-05-18 05:16] LABS: INTERNATIONAL NORMALIZED RATIO 2.02 (0.93-1.1); PROTHROMBIN TIME 20.5 Seconds (9.6-11.5)
[2017-05-18 05:18] LABS: ANION GAP 7 mmol/L (5-15); CALCIUM 8.5 mg/dL (8.5-10.1); CHLORIDE 105 mmol/L (98-107)
[2017-05-18 05:20] LABS: CREATININE 0.81 mg/dL (0.7-1.3)
[2017-05-18] MEDS: INSULIN LISPRO 100 UNITS/ML, PEN SQ-INSULIN SCH ×4 (07:57→21:00)
[2017-05-18 08:07] VITALS: BP 139/86
[2017-05-18] MEDS: POTASSIUM CHLORIDE 20 MEQ PACKET PO SCH ×2 (09:33→16:34)
[2017-05-18] MEDS: DOCUSATE 100 MG CAPSULE PO SCH ×2 (09:34→21:24)
[2017-05-18] MEDS: ASPIRIN 81 MG TABLET EC PO SCH (09:34)
[2017-05-18] MEDS: AMIODARONE 200 MG TABLET PO SCH ×2 (09:34→21:23)
[2017-05-18] MEDS: TAMSULOSIN 0.4 MG CAP.ER.24H PO SCH (09:34)
[2017-05-18] MEDS: FUROSEMIDE 40 MG/4 ML IV SCH (09:34)
[2017-05-18] MEDS: SODIUM CHLORIDE FLUSH 10ML SYR IVF SCH ×2 (09:34→21:24)
[2017-05-18] MEDS: WARFARIN BIOPROSTHETIC VALVE PROTOCOL 2-3 XX SCH (09:35)
[2017-05-18] MEDS: WARFARIN MODERAT DOSE PROTOCOL XX SCH (12:00)
[2017-05-18 13:30] VITALS: BP 138/75
[2017-05-18] MEDS ORDERED: WARFARIN 2 MG TABLET PO-COUM ONE (18:00)
[2017-05-18 19:49] VITALS: BP 133/94
[2017-05-19 02:49] VITALS: BP 124/79
[2017-05-19 03:31] LABS: INTERNATIONAL NORMALIZED RATIO 2.45 (0.93-1.1); PROTHROMBIN TIME 24.8 Seconds (9.6-11.5)
[2017-05-19 03:32] LABS: ANION GAP 7 mmol/L (5-15); CALCIUM 8.4 mg/dL (8.5-10.1); CHLORIDE 107 mmol/L (98-107); CREATININE 0.96 mg/dL (0.7-1.3)
[2017-05-19 06:45] VITALS: BP 159/86
[2017-05-19] MEDS: INSULIN LISPRO 100 UNITS/ML, PEN SQ-INSULIN SCH ×4 (07:18→20:24)
[2017-05-19] MEDS: WARFARIN BIOPROSTHETIC VALVE PROTOCOL 2-3 XX SCH (07:25)
[2017-05-19] MEDS: POTASSIUM CHLORIDE 20 MEQ PACKET PO SCH ×2 (09:21→18:07)
[2017-05-19] MEDS: DOCUSATE 100 MG CAPSULE PO SCH ×2 (09:22→20:22)
[2017-05-19] MEDS: FUROSEMIDE 40 MG/4 ML IV SCH (09:22)
[2017-05-19] MEDS: AMIODARONE 200 MG TABLET PO SCH ×2 (09:22→20:22)
[2017-05-19] MEDS: TAMSULOSIN 0.4 MG CAP.ER.24H PO SCH (09:22)
[2017-05-19] MEDS: SODIUM CHLORIDE FLUSH 10ML SYR IVF SCH ×2 (09:22→20:25)
[2017-05-19] MEDS: HYDROcodone/APAP 10/325 MG TABLET PO PRN ×3 (09:24→20:22)
[2017-05-19] MEDS: ASPIRIN 81 MG TABLET EC PO SCH (09:49)
[2017-05-19] MEDS: WARFARIN MODERAT DOSE PROTOCOL XX SCH (11:35)
[2017-05-19 12:50] VITALS: BP 131/80
[2017-05-19 14:57] VITALS: BP 132/85
[2017-05-19] MEDS ORDERED: WARFARIN 2.5 MG TABLET PO-COUM ONE (18:00)
[2017-05-19 18:55] VITALS: BP 141/92
[2017-05-20 02:25] VITALS: BP 132/81
[2017-05-20 04:44] LABS: ANION GAP 7 mmol/L (5-15); CALCIUM 8.3 mg/dL (8.5-10.1); CHLORIDE 105 mmol/L (98-107)
[2017-05-20 04:45] LABS: CREATININE 0.88 mg/dL (0.7-1.3)
[2017-05-20 04:47] LABS: INTERNATIONAL NORMALIZED RATIO 2.88 (0.93-1.1); PROTHROMBIN TIME 29.1 Seconds (9.6-11.5)
[2017-05-20 06:59] VITALS: BP 137/87
[2017-05-20] MEDS: INSULIN LISPRO 100 UNITS/ML, PEN SQ-INSULIN SCH ×4 (07:08→19:48)
[2017-05-20] MEDS: FUROSEMIDE 40 MG/4 ML IV SCH (08:04)
[2017-05-20] MEDS: DOCUSATE 100 MG CAPSULE PO SCH ×2 (08:05→19:52)
[2017-05-20] MEDS: AMIODARONE 200 MG TABLET PO SCH ×2 (08:05→19:52)
[2017-05-20] MEDS: SODIUM CHLORIDE FLUSH 10ML SYR IVF SCH ×2 (08:06→19:47)
[2017-05-20] MEDS: TAMSULOSIN 0.4 MG CAP.ER.24H PO SCH (08:06)
[2017-05-20] MEDS: ASPIRIN 81 MG TABLET EC PO SCH (08:06)
[2017-05-20] MEDS: POTASSIUM CHLORIDE 20 MEQ PACKET PO SCH ×2 (08:06→17:12)
[2017-05-20] MEDS: WARFARIN BIOPROSTHETIC VALVE PROTOCOL 2-3 XX SCH (08:11)
[2017-05-20] MEDS: HYDROcodone/APAP 10/325 MG TABLET PO PRN ×2 (11:59→19:52)
[2017-05-20] MEDS: WARFARIN MODERAT DOSE PROTOCOL XX SCH (12:10)
[2017-05-20 13:10] VITALS: BP 153/87
[2017-05-20] MEDS ORDERED: WARFARIN 2 MG TABLET PO-COUM ONE (18:00)
[2017-05-20 18:41] VITALS: BP 118/77
[2017-05-21 02:40] VITALS: BP 127/65
[2017-05-21 05:05] LABS: INTERNATIONAL NORMALIZED RATIO 2.98 (0.93-1.1)
[2017-05-21 05:12] LABS: CHLORIDE 106 mmol/L (98-107)
[2017-05-21 05:21] LABS: ANION GAP 9 mmol/L (5-15); CALCIUM 8.6 mg/dL (8.5-10.1); CREATININE 0.97 mg/dL (0.7-1.3)
[2017-05-21 07:16] VITALS: BP 127/81
[2017-05-21] MEDS: INSULIN LISPRO 100 UNITS/ML, PEN SQ-INSULIN SCH ×4 (07:46→19:36)
[2017-05-21] MEDS: FUROSEMIDE 40 MG/4 ML IV SCH (07:48)
[2017-05-21] MEDS: POTASSIUM CHLORIDE 20 MEQ PACKET PO SCH ×2 (07:48→16:52)
[2017-05-21] MEDS: DOCUSATE 100 MG CAPSULE PO SCH ×2 (07:48→19:32)
[2017-05-21] MEDS: HYDROcodone/APAP 10/325 MG TABLET PO PRN ×3 (07:49→19:32)
[2017-05-21] MEDS: ASPIRIN 81 MG TABLET EC PO SCH (07:49)
[2017-05-21] MEDS: TAMSULOSIN 0.4 MG CAP.ER.24H PO SCH (07:49)
[2017-05-21] MEDS: SODIUM CHLORIDE FLUSH 10ML SYR IVF SCH ×2 (07:49→19:32)
[2017-05-21] MEDS: AMIODARONE 200 MG TABLET PO SCH ×2 (07:49→19:33)
[2017-05-21] MEDS: WARFARIN BIOPROSTHETIC VALVE PROTOCOL 2-3 XX SCH (07:51)
[2017-05-21] MEDS: WARFARIN MODERAT DOSE PROTOCOL XX SCH (11:46)
[2017-05-21 13:55] VITALS: BP 137/85
[2017-05-21] MEDS ORDERED: WARFARIN 2 MG TABLET PO-COUM ONE (18:00)
[2017-05-21 19:04] VITALS: BP 136/75
[2017-05-22 04:06] VITALS: BP 129/88
[2017-05-22 04:16] LABS: INTERNATIONAL NORMALIZED RATIO 2.76 (0.93-1.1); PROTHROMBIN TIME 28.1 Seconds (9.6-11.5)
[2017-05-22 04:20] LABS: ANION GAP 9 mmol/L (5-15); CALCIUM 8.4 mg/dL (8.5-10.1); CHLORIDE 106 mmol/L (98-107); CREATININE 0.88 mg/dL (0.7-1.3)
[2017-05-22] MEDS: INSULIN LISPRO 100 UNITS/ML, PEN SQ-INSULIN SCH ×3 (07:00→16:00)
[2017-05-22 07:15] VITALS: BP 124/79
[2017-05-22] MEDS: AMIODARONE 200 MG TABLET PO SCH (08:17)
[2017-05-22] MEDS: DOCUSATE 100 MG CAPSULE PO SCH (08:17)
[2017-05-22] MEDS: POTASSIUM CHLORIDE 20 MEQ PACKET PO SCH ×2 (08:17→17:15)
[2017-05-22] MEDS: TAMSULOSIN 0.4 MG CAP.ER.24H PO SCH (08:17)
[2017-05-22] MEDS: ASPIRIN 81 MG TABLET EC PO SCH (08:17)
[2017-05-22] MEDS: FUROSEMIDE 40 MG/4 ML IV SCH (08:18)
[2017-05-22] MEDS: SODIUM CHLORIDE FLUSH 10ML SYR IVF SCH (08:18)
[2017-05-22] MEDS: WARFARIN BIOPROSTHETIC VALVE PROTOCOL 2-3 XX SCH (08:18)
[2017-05-22] MEDS: HYDROcodone/APAP 10/325 MG TABLET PO PRN ×3 (08:30→17:14)
[2017-05-22] MEDS: WARFARIN MODERAT DOSE PROTOCOL XX SCH (11:42)
[2017-05-22 13:26] VITALS: BP 139/84
[2017-05-22 14:20] LABS: BASOPHILS # (AUTO) 0.03 x10^3/uL (0-0.1); BASOPHILS % (AUTO) 0 % (0-1); EOSINOPHILS # (AUTO) 0.21 x10^3/uL (0-0.4); EOSINOPHILS % (AUTO) 3 % (1-7); LYMPHOCYTES # (AUTO) 1.18 x10^3/uL (1-3.4); LYMPHOCYTES % (AUTO) 15 % (22-44); MD NO; MEAN CORPUSCULAR HEMOGLOBIN 31.4 pg (27.5-34.5); MEAN CORPUSCULAR HGB CONC 32.6 g/dL (33.2-36.2); MEAN CORPUSCULAR VOLUME 96.5 fL (81-97); MEAN PLATELET VOLUME 9.3 fL (7.4-10.4); MONOCYTES # (AUTO) 0.67 x10^3/uL (0.2-0.8); MONOCYTES % (AUTO) 9 % (2-9); NEUTROPHILS # (AUTO) 5.81 x10^3/uL (1.8-6.8); NEUTROPHILS % (AUTO) 74 % (42-75); PLATELET COUNT 254 x10^3/uL (130-400); RED BLOOD COUNT 4.03 x10^6/uL (4.38-5.82); RED CELL DISTRIBUTION WIDTH 15.8 % (9.4-14.8)
[2017-05-22] MEDS ORDERED: WARFARIN 2 MG TABLET PO-COUM ONE (18:00)
[2017-05-23] MEDS ORDERED: FUROSEMIDE 40 MG TABLET PO SCH (09:00)
== END 2017-05-22 17:27 | DRG 219 ==
LOC: 5SO 04:55 → CCU 08:00 → CSU 08:12 → 5SO 05-10 12:35
PROVIDERS: ADMIT Thoracic Surgery (Cardiothoracic Vascular Surgery); ATTEND Thoracic Surgery (Cardiothoracic Vascular Surgery)
PROC: B246ZZ4 Ultrasonography of Right and Left Heart, Transesophageal (ICD-10-PCS; 2017-05-07)
PROC: 02RF08Z Replacement of Aortic Valve with Zooplastic Tissue, Open Approach (ICD-10-PCS; principal; 2017-05-07 07:30)
DX: I35.0 Nonrheumatic aortic (valve) stenosis (principal); J96.00 Acute respiratory failure, unspecified whether with hypoxia or hypercapnia; J98.11 Atelectasis; J81.1 Chronic pulmonary edema; E78.5 Hyperlipidemia, unspecified; E66.01 Morbid (severe) obesity due to excess calories; E11.9 Type 2 diabetes mellitus without complications; I10 Essential (primary) hypertension; I25.10 Atherosclerotic heart disease of native coronary artery without angina pectoris; I34.0 Nonrheumatic mitral (valve) insufficiency; G47.33 Obstructive sleep apnea (adult) (pediatric); I48.2 Chronic atrial fibrillation; I70.0 Atherosclerosis of aorta; Z87.891 Personal history of nicotine dependence; Z23 Encounter for immunization; Z68.31 Body mass index [BMI] 31.0-31.9, adult
CPT/HCPCS: 36415; 36600; 71045; 71046; 80048; 80053; 81003; 82040; 82330; 82800; 82803; 82810; 82947; 82962; 83036; 83735; 84132; 84295; 85014; 85018; 85025; 85049; 85347; 85610; 85730; 86850; 86900; 86923; 87081; 88305; 90686; 90732; 93005; 93312; 93321; 93325; 93880; 94002; 94150; C1768; J0171; J0697; J1644; J1815; J1940; J2250; J2405; J2704; J3010; J3370; J3475; J3480; J3490; P9045; P9047; C1751; C1760; C1762; J0282; J2270; J2370; J2930; J7040; J7050; J7060; J7120

== ENCOUNTER → 2017-09-14 | Outpatient (CLI) | payer OTHER ==
[~2017-09-14] MED LIST changes: +AMIO200T42 PO; +ASPI-621 PO; +DOCU-131 PO; +FURO40TA6 PO; +HYDR-3240 PO; -METF500T4 PO; +METF500T5 PO; +POTA20TA14 PO; +TAMS-11 PO; +WARF2.5T PO-COUM
== END | disposition home or self-care (01) ==
LOC: CVU 07:46
PROVIDERS: ATTEND Internal Medicine Cardiovascular Disease
DX: I34.0 Nonrheumatic mitral (valve) insufficiency (principal); I48.91 Unspecified atrial fibrillation; Z95.2 Presence of prosthetic heart valve
CPT/HCPCS: 93306